=== PATIENT | male | born 1955 | race Caucasian/White ===

== ENCOUNTER 2017-07-30 20:56 | Emergency (ER) | payer OTHER ==
[2017-07-30] MEDS: DIPHTH/TET/ACEL PERTUSS (ADULT) 0.5 ML VIAL IM* (23:51)
[2017-07-31] MEDS: OXYCODONE/ACETAMINOPHEN (10/325) TAB PO (00:18)
[2017-07-31] MEDS: ONDANSETRON (ODT) 4 MG TAB ODT (00:18)
== END 2017-07-31 01:52 | disposition home or self-care (01) ==
LOC: FTE 07-31 01:52
DX: S22.42XA Multiple fractures of ribs, left side, initial encounter for closed fracture (principal); S00.83XA Contusion of other part of head, initial encounter; S49.92XA Unspecified injury of left shoulder and upper arm, initial encounter; V49.40XA Driver injured in collision with unspecified motor vehicles in traffic accident, initial encounter
CPT/HCPCS: 70486; 71100; 73030; 90471; 90715; 99285-25